=== PATIENT | male | born 1980 | race Caucasian/White ===

== ENCOUNTER 2016-07-07 01:27 | Inpatient (IN) | payer MEDICARE, OTHER ==
[~2016-07-07] VITALS: Ht 188 cm; Wt 87.1 kg
[2016-07-07 01:34] VITALS: BP 150/101; PULSE 111; RESP 18; TEMP 98.1; O2SAT 97
--- NOTE | 2016-07-07 01:38 | PD ---
HPI Chief Complaint: BA Time Seen by Provider: 01:37 Travel History International Travel<30 days: No Contact w/Intl Traveler<30days: No Traveled to known affect area: No History of Present Illness HPI 35-year-old male with history of bipolar disorder since the emergency department under a Ho act for psychiatric evaluation. Pt states he drank too much alcohol and "was stupid." Pt says he has anger management issues and controls his bipolar with marijuana. He is not taking any medication because he does not like how it made him feel. Denies suicidal or homicidal ideations. Reports no acute medical needs. PFSH Past Medical History Bipolar Disorder: Yes Social History Alcohol Use: Yes Tobacco Use: Yes Substance Use: Yes Allergies-Medications (Allergen,Severity, Reaction): Coded Allergies: Codeine (Verified Allergy, Severe, 07/07/16) hives Reported Meds & Prescriptions Reported Meds & Active Scripts Active Reported Klonopin (Clonazepam) 2 Mg Tab 2 Mg PO DAILY Review of Systems Except as stated in HPI: all other systems reviewed are Neg Physical Exam Narrative GENERAL: Well-nourished, well-developed male patient, in no acute distress SKIN: Warm and dry. HEAD: Normocephalic. Atraumatic EYES: No scleral icterus. No injection or drainage. NECK: Supple, trachea midline. No JVD or lymphadenopathy. CARDIOVASCULAR: Tachycardic rate and rhythm without murmurs, gallops, or rubs. RESPIRATORY: Breath sounds equal bilaterally. No accessory muscle use. GASTROINTESTINAL: Abdomen soft, non-tender, nondistended. MUSCULOSKELETAL: No cyanosis, or edema. BACK: Nontender without obvious deformity. No CVA tenderness. Data Data Last Documented VS Vital Signs Date Time Temp Pulse Resp B/P Pulse Ox O2 Delivery O2 Flow Rate FiO2 07/07/16 01:34 98.1 111 18 150/101 97 Orders Complete Blood Count With Diff (07/07/16 01:37) Basic Metabolic Panel (Bmp) (07/07/16 01:37) Psych Screen (07/07/16 01:37) Drug Screen, Random Urine (07/07/16 01:37) Alcohol (Ethanol) (07/07/16 01:37) Potassium Chloride (Kcl) (07/07/16 03:15) Labs Laboratory Tests Test 07/07/16 02:10 White Blood Count 7.2 TH/MM3 Red Blood Count 5.39 MIL/MM3 Hemoglobin 16.3 GM/DL Hematocrit 47.9 % Mean Corpuscular Volume 88.9 FL Mean Corpuscular Hemoglobin 30.2 PG Mean Corpuscular Hemoglobin 34.0 % Concent Red Cell Distribution Width 13.6 % Platelet Count 260 TH/MM3 Mean Platelet Volume 7.9 FL Neutrophils (%) (Auto) 51.1 % Lymphocytes (%) (Auto) 34.0 % Monocytes (%) (Auto) 12.5 % Eosinophils (%) (Auto) 2.3 % Basophils (%) (Auto) 0.1 % Neutrophils # (Auto) 3.7 TH/MM3 Lymphocytes # (Auto) 2.5 TH/MM3 Monocytes # (Auto) 0.9 TH/MM3 Eosinophils # (Auto) 0.2 TH/MM3 Basophils # (Auto) 0.0 TH/MM3 CBC Comment DIFF FINAL Differential Comment Sodium Level 140 MEQ/L Potassium Level 3.0 MEQ/L Chloride Level 102 MEQ/L Carbon Dioxide Level 28.2 MEQ/L Anion Gap 10 MEQ/L Blood Urea Nitrogen 9 MG/DL Creatinine 1.06 MG/DL Estimat Glomerular Filtration 80 ML/MIN Rate Random Glucose 141 MG/DL Calcium Level 8.8 MG/DL Urine Opiates Screen NEG Urine Barbiturates Screen NEG Urine Amphetamines Screen NEG Urine Benzodiazepines Screen NEG Urine Cocaine Screen NEG Urine Cannabinoids Screen POS Ethyl Alcohol Level 160 MG/DL MDM Medical Decision Making Medical Screen Exam Complete: Yes Emergency Medical Condition: Yes Medical Record Reviewed: Yes Differential Diagnosis Mood disorder versus personality disorder versus adjustment reaction disorder Narrative Course 35-year-old male presents to the emergency department under Ho act for psychiatric evaluation. Patient appears without distress. Lab work is without acute concern except for patient is hypokalemic at 3.0. This is repleted in the emergency department. He is medically cleared to undergo psychiatric screening for further evaluation and disposition. Diagnosis Primary Impression: Mood disorder Additional Impression: Substance abuse Condition: Stable Wendi Reddy Jul 07, 2016 01:37
[2016-07-07] MEDS ORDERED: KLON2TAB PO (01:42)
[2016-07-07 02:36] LABS: AMPHETAMINE, URINE NEG (NEG); BARBITURATES, URINE NEG (NEG); COCAINE, URINE NEG (NEG)
[2016-07-07 02:37] LABS: AUTOMATED NEUTROPHIL # 3.7 TH/MM3 (1.8-7.7); BASOPHIL % 0.1 % (0.0-2.0); EOSINOPHIL # 0.2 TH/MM3 (0-0.4); EOSINOPHIL % 2.3 % (0.0-4.0); HEMATOCRIT 47.9 % (39.0-51.0); HEMO FLAGS DIFF FINAL; LYMPHOCYTE # 2.5 TH/MM3 (1.0-4.8); MEAN CELL VOLUME 88.9 FL (80.0-100.0); MEAN CORPUSCULAR HEMOGLOBIN 30.2 PG (27.0-34.0); MONO % 12.5 % (0.0-8.0); NEUT % 51.1 % (16.0-70.0); PLATELET COUNT 260 TH/MM3 (150-450); RED BLOOD COUNT 5.39 MIL/MM3 (4.50-5.90); RED CELL DISTRIBUTION WIDTH 13.6 % (11.6-17.2); WHITE BLOOD COUNT 7.2 TH/MM3 (4.0-11.0)
[2016-07-07 02:42] LABS: BICARBONATE 28.2 MEQ/L (21.0-32.0)
[2016-07-07] MEDS ORDERED: POTASSIUM CHLORIDE 10 MEQ CONTROLLED RELEASE TAB PO ONE (03:15)
[2016-07-07] MEDS ORDERED: ACETAMINOPHEN 325 MG TAB PO ONE (07:30)
[2016-07-07 09:28] VITALS: BP 137/85; PULSE 80; RESP 20; O2SAT 97
[2016-07-07 11:55] VITALS: BP 124/84; PULSE 90; RESP 18; TEMP 97.8; O2SAT 98
[2016-07-07 14:23] VITALS: BP 144/95; PULSE 95; RESP 18; O2SAT 93
[2016-07-07] MEDS ORDERED: MAGNESIUM HYDROXIDE SUSP 30 ML CUP PO PRN (17:15)
[2016-07-07] MEDS ORDERED: OLANZapine 10 MG TAB PO ONE (17:15)
[2016-07-07] MEDS ORDERED: LORazepam 2 MG/ML VIAL IM PRN (17:15)
[2016-07-07] MEDS ORDERED: ACETAMINOPHEN 325 MG TAB PO PRN (17:15)
[2016-07-07 18:00] VITALS: BP 145/90; PULSE 92; RESP 18; TEMP 98.6; O2SAT 96
[2016-07-07] MEDS: LORazepam 1 MG TAB PO PRN (18:35)
[2016-07-07] MEDS: REMOVE OLD NICOTINE PATCH T-DERMAL SCH (19:57)
[2016-07-08 06:11] VITALS: BP 158/89; PULSE 97; RESP 18; TEMP 98; O2SAT 96
[2016-07-08] MEDS: REMOVE OLD NICOTINE PATCH T-DERMAL SCH (08:01)
[2016-07-08] MEDS: LORazepam 1 MG TAB PO PRN ×2 (08:02→18:30)
[2016-07-08] MEDS: ALUMINUM/MAGNESIUM/SIMETH 30 ML CUP PO PRN ×2 (08:02→08:03)
[2016-07-08 08:33] LABS: ANION GAP 6 MEQ/L (5-15); BICARBONATE 32.5 MEQ/L (21.0-32.0); BLOOD UREA NITROGEN 11 MG/DL (7-18); CHLORIDE 102 MEQ/L (98-107); GLOMERULAR FILTRATION RATE 82 ML/MIN (>89); HDL CHOLESTEROL 33.9 MG/DL (40.0-60.0); LDL CHOLESTEROL 145 MG/DL (0-99); POTASSIUM 4.1 MEQ/L (3.5-5.1); SODIUM (NA) 140 MEQ/L (136-145)
[2016-07-08] MEDS ORDERED: NICOTINE 21 MG/24 HR PATCH T-DERMAL SCH (09:00)
[2016-07-08 12:42] LABS: HEMOGLOBIN A1a 1.2 %; HEMOGLOBIN A1b 1.6 %; HEMOGLOBIN Ao 85.3 %; HEMOGLOBIN P3 3.7 %
[2016-07-08] MEDS: NICOTINE 21 MG/24 HR PATCH T-DERMAL SCH (13:30)
[2016-07-08] MEDS ORDERED: diphenhydrAMINE HCL 50 MG CAP PO PRN (13:30)
[2016-07-08] MEDS ORDERED: MAGNESIUM HYDROXIDE SUSP 30 ML CUP PO PRN (13:30)
[2016-07-08] MEDS ORDERED: ACETAMINOPHEN 325 MG TAB PO PRN (13:30)
[2016-07-08] MEDS ORDERED: ALUMINUM/MAGNESIUM/SIMETH 30 ML CUP PO PRN (13:30)
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
[2016-07-08 20:01] VITALS: BP 148/93; PULSE 107; RESP 18; TEMP 97.9; O2SAT 98
[2016-07-09 06:13] VITALS: BP 146/89; RESP 18; TEMP 98; O2SAT 96
[2016-07-09] MEDS: LORazepam 1 MG TAB PO PRN (08:19)
[2016-07-09] MEDS: NICOTINE 21 MG/24 HR PATCH T-DERMAL SCH (08:56)
--- NOTE | 2016-07-09 13:34 | PD.CONS ---
Provisional Diagnosis Admission Date Jul 07, 2016 at 17:00 [place] I. Bipolar disorder most recent episode shabnam F 31.10, alcohol abuse with intoxicationof 10.129, marijuana abuse F 12.10 History of Present Illness Service Psychiatry Consult Requested By Psychiatry Reason for Consult 2nd opinion Primary Care Physician Raghu Pedro M.D. HPI Pt seen and discussed with staff. Chart reviewed. Pt is a 35YOWM with a hx of bipolar disorder, who was admitted to [facility] under a BA alleging that pt had broken bedroom door and frame and was screaming and yelling at his mother. He was positive for cannabis and BAL was 160 at presentation. He was agitated in the ED and received olanzapine 10mg X1. Staff report that pt was agitated on unit, cursing, slamming doors and threatening. Today pt is noted to be pressured of speech with tangential thought process. He states that he stopped taking medications for bipolar disorder and treats his condition with " medicinal weed" and clonazepam that is prescribed by "a tall doctor. he is going to put me on weed when it gets legal here, but It will be 6 months of bullshit!" He states that his dealer got busted and he has not had weed in 5-6 days. He c/o of inability to sleep,nausea, agitated mood, and depression. He states that he has tried all sorts of atypicals and antidepressants and "they all make me feel like shit. They make me kill myself." He reports hx of hospitalizations. At first he is adamant that he will only use cannabis for bipolar disorder, but later agrees to try latuda only. He reports that he "is always depressed" and nothing has ever helped him. He denies current SI/HI. Review of Systems Psychiatric: COMPLAINS OF: Mood changes Past Family Social History Coded Allergies: Codeine (Verified Allergy, Severe, 07/07/16) hives Haloperidol (Verified Adverse Reaction, Unknown, EPS, 07/07/16) [place] (Verified Adverse Reaction, Unknown, Nausea/Vomiting, 07/07/16) Discontinued Reported Medications Clonazepam (Klonopin)2 Mg Tab2 Mg PO DAILY #60 TAB Ref 0 07/07/16 Current Medications Medications (Trade) Dose Ordered Sig/Aaron Route Start Time Stop Time Status Last Admin (Ativan) 1 mg Q6H PRN PO 07/07/16 17:15 2/19/17 08:19 (Ativan Inj) 1 mg Q6H PRN IM 07/07/16 17:15 (Tylenol) 650 mg Q4H PRN PO 07/07/16 17:15 (Milk Of Magnesia Liq) 30 ml DAILY PRN PO 07/07/16 17:15 (Mag-Al Plus Susp Liq) 30 ml Q6H PRN PO 07/07/16 17:15 (Benadryl) 50 mg HS PRN PO 07/08/16 13:30 Family History substance abuse and bipolar disorder Social History Lives iwth his mother, , is on disability, 2 children Patient's Strengths (min. 2) good physical health, verbal Physical Exam Vital Signs Vital Signs Date Time Temp Pulse Resp B/P Pulse Ox O2 Delivery O2 Flow Rate FiO2 07/09/16 06:13 98.0 18 146/89 96 07/08/16 20:01 107 07/07/16 14:23 Room Air Mental Status Examination Speech: Pressured, Rapid, Circumstantial, Tangential Orientation: x3 Memory: Unremarkable Thought Process: Linear, Tangential Thought Content: Unremarkable Hallucination Type: None (denies) Attention and Concentration: Easily Distracted Suicidal Ideation: No Previous Suicide Attempts: No Homicidal Ideation: No Previous Homicide Attempts: No Insight: Poor Judgement: Poor Affect: Other (increased range and intensity) Mood: Sad, Manic Motor Activity: Normal gait Assessment & Plan Problem List: (1) Bipolar disorder, most recent episode manic ICD Code: F31.10 (2) Alcohol abuse with intoxication ICD Code: F10.129 (3) Marijuana abuse ICD Code: F12.10 Assessment & Plan I agree that pt meets criteria for involuntary hospitalization. 2nd opinion paperwork completed. Will start trial of latuda. Risk vs benefits and potential side effects discussed with patient, including risk of TD. Estimated LOS: days Request HC Surrog/Guard Advoc?: Kaye Fernandes MD Jul 09, 2016 13:34
[2016-07-09 18:00] VITALS: BP 156/111; PULSE 120; RESP 18; TEMP 98.7; O2SAT 94
[2016-07-09] MEDS ORDERED: LURASIDONE 40 MG TAB PO SCH (18:00)
[2016-07-09] MEDS: ALUMINUM/MAGNESIUM/SIMETH 30 ML CUP PO PRN (18:12)
[2016-07-10] MEDS: ALUMINUM/MAGNESIUM/SIMETH 30 ML CUP PO PRN (03:06)
[2016-07-10 06:20] VITALS: BP 149/91; PULSE 88; RESP 18; TEMP 97.4; O2SAT 99
--- NOTE | 2016-07-10 11:08 | HHI.PYPN ---
Subjective Remarks Patient seen and examined with counselor. Chart reviewed. Case discussed with nursing staff. On my examination today, the patient says that he came into the hospital because he hadn't slept or eaten for several days as he was in a manic state. He says "I wasn't thinking right." He says that the substance use associated with his presentation here was a phenomenon of the shabnam and not the other way around. He is not typically a drinker or a substance user he tells me. He is quite pleased with the Latuda that Dr. Wayne started the patient on. He says that he feels the best he has in some time. He denies side effects from medications. Denies any SI, HI or AVH. Speech remains a little pressured in his thought process is somewhat loose. Somewhat discharge focused but agreeable to remaining in order for us to obtain collateral and for further stabilization. Review of Systems Other No physical complaints. No complaints of withdrawal. Objective Alert: Yes [place]: Person, Place, Date Mood: Happy Affect: Other (mildly expansive) Memory Intact: Comment (not formally assessed) Hallucinations: Other (denies AVH) Delusions: No Delusion Type: Other (no jeanie delusions) Suicidal: Ideation (denies SI) Homicidal: Ideation (denies HI) Insight/Judgement Unclear Remarks Thought process with some ongoing loosening of associations. Speech a little bit pressured. No abnormal motor movements noted. No hand tremor, no diaphoresis, no mydriasis, no other signs of withdrawal noted. Labs Labs reviewed. Vitals/IOs Vital Signs Date Time Temp Pulse Resp B/P Pulse Ox O2 Delivery O2 Flow Rate FiO2 07/10/16 06:20 97.4 88 18 149/91 99 07/07/16 14:23 Room Air Assessment & Plan Problem List: (1) Bipolar disorder, most recent episode manic ICD Code: F31.10 (2) Alcohol abuse with intoxication ICD Code: F10.129 (3) Marijuana abuse ICD Code: F12.10 Assessment & Plan Titrate Latuda for additional mood stabilization. Counselor to obtain collateral. Continue to observe on the inpatient unit. Continue other medications and care as ordered. Justification for Cont. Inpt. Concern for ongoing impairments in reality construction and safety. Discharge Planning Pending psychiatric stabilization Request HC Surrog/Guard Advoc?: No Patrice Can MD Jul 10, 2016 11:08
[2016-07-10] MEDS: LORazepam 1 MG TAB PO PRN (17:54)
[2016-07-10 18:00] VITALS: BP 144/101; PULSE 98; RESP 18; TEMP 98.2; O2SAT 98
[2016-07-10] MEDS ORDERED: LURASIDONE 40 MG TAB PO SCH (18:00)
[2016-07-10 19:59] VITALS: BP 144/101; PULSE 98; RESP 18; TEMP 98.2; O2SAT 98
[2016-07-11] MEDS: ALUMINUM/MAGNESIUM/SIMETH 30 ML CUP PO PRN ×2 (02:10→17:00)
[2016-07-11 05:57] VITALS: BP 132/94; PULSE 89; RESP 18; TEMP 97.4; O2SAT 97
--- NOTE | 2016-07-11 12:34 | HHI.PYPN ---
Subjective Remarks Patient seen and examined with counselor and nursing staff in treatment team. Chart reviewed. Case discussed with counselor, nursing staff and occupational therapist. Per nursing staff, patient reportedly told him that "THC cures everything." Counselor has spoken with patient's mother who voices concerns about patient's behavior at home. On my examination today, the patient tends to minimize these concerns and links them to his substance use. He feels that the Latuda is helping to stabilize his mood and he says that he slept well overnight. "I feel really good." He denies any SI or HI. Denies any audiovisual hallucinations. Some lingering irritability. Somewhat dictating of care. Denies side effects from medications. He is agreeable to replacing his Ativan with something less habit-forming for anxiety. Review of Systems Other No physical complaints. No complaints of withdrawal. Objective Alert: Yes [place]: Person, Place, Date Mood: Calm Affect: Other (mildly irritable) Memory Intact: Comment (not formally assessed) Hallucinations: Other (denies AVH) Delusions: No Delusion Type: Other (no delusional material) Suicidal: Ideation (denies suicidal ideation) Homicidal: Ideation (denies homicidal ideation) Insight/Judgement Fair to poor Remarks No hand tremor, no diaphoresis, no mydriasis, no other signs of withdrawal noted. Thought process linear. Speech within normal limits for rate, tone and volume. No other motoric abnormalities noted. Labs Labs reviewed. No new labs. Vitals/IOs Vital Signs Date Time Temp Pulse Resp B/P Pulse Ox O2 Delivery O2 Flow Rate FiO2 07/11/16 05:57 97.4 89 18 132/94 97 07/07/16 14:23 Room Air Assessment & Plan Problem List: (1) Drug-induced mood disorder ICD Code: F19.94 (2) Alcohol abuse ICD Code: F10.10 (3) Marijuana abuse ICD Code: F12.10 Assessment & Plan Titrate Latuda for mood. Discontinue Ativan for anxiety and replace with Atarax. [place] a CIWA scale with Ativan for the management of any alcohol withdrawal in case this has been covered by the Ativan for anxiety. Continue other medications and care as ordered. Justification for Cont. Inpt. Monitoring for impairments in safety. Medication changes. Discharge Planning Pending outcome of [place], . Request HC Surrog/Guard Advoc?: No Patrice Can MD Jul 11, 2016 12:34
[2016-07-11] MEDS ORDERED: LORazepam 1 MG TAB PO PRN (12:45)
[2016-07-11] MEDS ORDERED: FLUMAZENIL 0.5 MG/5 ML VIAL IV PUSH PRN (12:45)
[2016-07-11] MEDS ORDERED: hydrOXYzine HCL 50 MG TAB PO PRN (12:45)
[2016-07-11] MEDS ORDERED: LORazepam 2 MG TAB PO PRN (12:45)
[2016-07-11] MEDS ORDERED: LORazepam 2 MG/ML VIAL IV PUSH PRN ×4 (12:45)
[2016-07-11] MEDS: LURASIDONE 80 MG TAB PO SCH (17:00)
[2016-07-11 19:57] VITALS: BP 149/92; PULSE 109; RESP 18; TEMP 98.7; O2SAT 97
[2016-07-12 04:53] VITALS: BP 123/72; PULSE 89; RESP 18; TEMP 96.3; O2SAT 100
[2016-07-12 05:50] VITALS: BP 146/90; PULSE 90; RESP 18; TEMP 97.8; O2SAT 95
[2016-07-12] MEDS: ALUMINUM/MAGNESIUM/SIMETH 30 ML CUP PO PRN (06:49)
--- NOTE | 2016-07-12 14:58 | HHI.PYPN ---
Subjective Remarks Patient seen and examined with counselor. Chart reviewed. Case discussed with nursing staff. No behavioral issues noted. On my examination today, patient reports that he is feeling well and responding well to medications. He denies side effects from medications. He reports that he is sleeping well. He denies any suicidal or homicidal ideation. He does complain of some mild anxiety and says that the Atarax isn't helping much with this. He specifically says that he doesn't want to go on any sort habit-forming medication like a benzodiazepine. We discussed alternative options for the management of anxiety and settle on a trial of gabapentin. Review of Systems Other No physical complaints today. Objective Alert: Yes [place]: Person, Place, Date Mood: Calm Affect: Other (full and reactive) Memory Intact: Comment (not formally assessed) Hallucinations: Other (denies audiovisual hallucinations) Delusions: No Delusion Type: Other (no delusional material present) Suicidal: Ideation (denies suicidal ideation) Homicidal: Ideation (denies homicidal ideation) Insight/Judgement Fair Remarks Thought process linear. Grooming and hygiene good. No motoric abnormalities noted. No signs of withdrawal. Speech within normal limits for rate, tone and volume. Labs Labs reviewed. No new labs. Vitals/IOs Vital Signs Date Time Temp Pulse Resp B/P Pulse Ox O2 Delivery O2 Flow Rate FiO2 07/12/16 05:50 97.8 90 18 146/90 95 Assessment & Plan Problem List: (1) Drug-induced mood disorder ICD Code: F19.94 (2) Alcohol abuse ICD Code: F10.10 (3) Marijuana abuse ICD Code: F12.10 Assessment & Plan Patient seems overall improved today. I will continue his Latuda as ordered. I will add gabapentin for anxiety. Patient may sign voluntary. Continue other medications and care as ordered. Justification for Cont. Inpt. Medication changes in process. Discharge Planning Monitor overnight. Possible discharge tomorrow. Request HC Surrog/Guard Advoc?: No Patrice Can MD Jul 12, 2016 14:58
[2016-07-12] MEDS: LURASIDONE 80 MG TAB PO SCH (19:42)
[2016-07-12] MEDS: GABAPENTIN 300 MG CAP PO SCH (19:42)
[2016-07-13 06:04] VITALS: BP 140/84; PULSE 92; RESP 16; TEMP 97.9
[2016-07-13] MEDS: ALUMINUM/MAGNESIUM/SIMETH 30 ML CUP PO PRN (08:04)
[2016-07-13] MEDS: GABAPENTIN 300 MG CAP PO SCH ×3 (09:00→17:41)
[2016-07-13] MEDS ORDERED: LURA80 PO (14:41)
[2016-07-13] MEDS ORDERED: NEUR300C PO (14:41)
--- NOTE | 2016-07-13 14:41 | HHI.DS ---
Psychiatry Discharge Summary Inpatient Psychiatric care?: Yes Advance Directive: No Reason Not Provided: Due to Patient Condition Mental Health AdvanceDirective: No Health Care Proxy: No Admission Admission Date Jul 07, 2016 at 17:00 Admission Diagnosis: (1) Bipolar disorder, most recent episode manic ICD Code: F31.10 (2) Alcohol abuse with intoxication ICD Code: F10.129 (3) Marijuana abuse ICD Code: F12.10 Brief History Pt seen and discussed with staff. Chart reviewed. Pt is a 35YOWM with a hx of bipolar disorder, who was admitted to [facility] under a BA alleging that pt had broken bedroom door and frame and was screaming and yelling at his mother. He was positive for cannabis and BAL was 160 at presentation. He was agitated in the ED and received olanzapine 10mg X1. Staff report that pt was agitated on unit, cursing, slamming doors and threatening. Today pt is noted to be pressured of speech with tangential thought process. He states that he stopped taking medications for bipolar disorder and treats his condition with " medicinal weed" and clonazepam that is prescribed by "a tall doctor. he is going to put me on weed when it gets legal here, but It will be 6 months of bullshit!" He states that his dealer got busted and he has not had weed in 5-6 days. He c/o of inability to sleep,nausea, agitated mood, and depression. He states that he has tried all sorts of atypicals and antidepressants and "they all make me feel like shit. They make me kill myself." He reports hx of hospitalizations. At first he is adamant that he will only use cannabis for bipolar disorder, but later agrees to try latuda only. He reports that he "is always depressed" and nothing has ever helped him. He denies current SI/HI. Tobacco Use In Past 30 Days: Refused To Answer Alcohol Use: 2-4 Times Per Month Hospital Course Patient was admitted to a locked, inpatient psychiatric unit. Appropriate precautions were in place throughout patient's hospital stay. Patient was seen and examined daily on the unit by psychiatry and also visited by counselor. Medications were adjusted. Patient tolerated medications well without side effects. Patient had improvement in his presenting psychiatric symptomatology during the course of his hospital stay. There was no evidence of any suicidality or homicidality on the inpatient unit. Patient's behavior improved with the benefit of pharmacologic treatment. On the day of discharge: Patient seen and examined with counselor and nurse. Chart reviewed. Case discussed with nursing staff who reports patient was somewhat irritable this morning but has been doing okay since then. On my examination today, the patient feels that he is much improved and is requesting discharge from the inpatient psychiatric unit today. He feels like his mood is stabilized I can elicit no depressive or hypomanic/manic symptoms. He denies any suicidal or homicidal ideation. No audiovisual hallucinations, nor can elicit any delusional beliefs. Counselor has been in contact with patient's mother who is willing to accept him home. Weighing the acute, chronic, and protective factors and based on the available evidence, I lasting machine operator hand method that the patient does not meet criteria for involuntary psychiatric hospitalization under the [place] act. That having been said, given nursing report of irritability this morning, I have strongly recommended that the patient remain on the inpatient psychiatric unit for further observation to ensure that his presenting mood episode has resolved. He is declining to remain on the unit, and given that I have no basis to retain him involuntarily, I will discharge him AGAINST MEDICAL ADVICE today. I have explained that he is leaving AGAINST MEDICAL ADVICE and he understands this. Patient is to follow-up psychiatrically as arranged by counselor. Patient is also follow-up with primary care. I have recommended that he accept a chemical dependency referral from us, but he has declined. I have counseled the patient regarding warning signs for need to return to the psychiatric emergency room as part of a general safety plan. Results Blood Pressure 140 / 84 Vital Signs Date Time Temp Pulse Resp B/P Pulse Ox O2 Delivery O2 Flow Rate FiO2 07/13/16 06:04 97.9 92 16 140/84 07/12/16 05:50 95 Item Value Date Time White Blood Count 7.2 TH/MM3 07/07/16 0210 Hemoglobin 16.3 GM/DL 07/07/16 0210 Platelet Count 260 TH/MM3 07/07/16 0210 Sodium Level 140 MEQ/L 07/08/16 0709 Potassium Level 4.1 MEQ/L # 07/08/16 0709 Chloride Level 102 MEQ/L 07/08/16 0709 Carbon Dioxide Level 32.5 MEQ/L H 07/08/16 0709 Blood Urea Nitrogen 11 MG/DL 07/08/16 0709 Creatinine 1.04 MG/DL 07/08/16 0709 Hemoglobin A1c 5.6 % 07/08/16 0709 Urine Cannabinoids Screen POS H 07/07/16 0210 Ethyl Alcohol Level 160 MG/DL H 07/07/16 0210 Summary of Procedures None done Imaging None done Pending results at discharge: No Medications # of Antipsychotic meds at D/C: 1 Approp Antipsych med options 1 - Minimum of three failed multiple trials of monotherapy. 2 - Documented plan to taper to monotherapy due to previous use of multiple meds OR cross-taper in progress at D/C. 3 - Documentation of augmentation of Clozapine. 4 - Justification other than those listed in allowable values 1-3, document here : Discharge Discharge Date: Jul 13, 2016 Discharge Diagnosis: (1) Drug-induced mood disorder Diagnosis: Principal ICD Code: F19.94 (2) Alcohol abuse Diagnosis: Secondary (counseled to quit) ICD Code: F10.10 (3) Marijuana abuse Diagnosis: Secondary (counseled to quit) ICD Code: F12.10 Mental Status Exam at Disch Patient is casually dressed. He is well groomed. He is awake and alert and oriented to person and hospital at least. No abnormal motor movements noted. No signs of withdrawal noted. No signs of delirium noted. Speech is within normal limits for rate, tone and volume. Language and fund of knowledge seem average. Mood is reportedly stable and affect is blunted. Thought process linear. No loosening of associations. No evident delusions. Denies audiovisual hallucinations. Denies suicidal or homicidal ideation. Insight and judgment are fair at best. Pt Condition on Discharge: Guarded (AMA discharge) Discharge Disposition: Discharge Home Discharge Instructions Diet Instructions: As Tolerated, No Restrictions Activities you can perform: Weight Bearing as Geo Scheduled Appointment: as per counselor's notes New Medications: Gabapentin (Neurontin) 300 Mg Cap 300 MG PO TID Mental Health Days 7 Ref 3 CAP Lurasidone (Latuda) 80 Mg Tab 80 MG PO WITH DINNER Mental Health Days 7 Ref 3 TAB Discharge Time <= 30 minutes Discharge/Advance Care Plan Health Problems: (1) Drug-induced mood disorder (2) Alcohol abuse (3) Marijuana abuse Goals to promote your health * To prevent worsening of your condition and complications * To maintain your health at the optimal level Directions to meet your goals Take your medications as prescribed Follow your dietary instruction Follow activity as directed Keep your appointments as scheduled Take your immunizations and boosters as scheduled If your symptoms worsen call your PCP, if no PCP go to Urgent Care Center or Emergency Room For 11/12 questions related to your inpatient stay or results of tests pending at discharge, please contact Dr. Patrice Can at Smoking is Dangerous to Your Health. Avoid second hand smoking Patrice Can MD Jul 13, 2016 14:41
[2016-07-13] MEDS: LURASIDONE 80 MG TAB PO SCH (17:40)
== END 2016-07-13 17:45 | disposition left against medical advice (07) | DRG 894 ==
LOC: NEPB 01:27 → NEDA 17:00 → H270 17:52 → H260 07-12 16:24
PROVIDERS: ADMIT Psychiatry & Neurology Psychiatry; ATTEND Psychiatry & Neurology Psychiatry
DX: F19.94 Other psychoactive substance use, unspecified with psychoactive substance-induced mood disorder (principal); F10.129 Alcohol abuse with intoxication, unspecified; F12.10 Cannabis abuse, uncomplicated; Y90.6 Blood alcohol level of 120-199 mg/100 ml; Z88.5 Allergy status to narcotic agent; Z88.8 Allergy status to other drugs, medicaments and biological substances; G47.00 Insomnia, unspecified
CPT/HCPCS: 80048; 80061; 80307; 80320; 83036; 85025; 99284